=== PATIENT | female | born 1990 | race Caucasian/White ===

== ENCOUNTER 2019-11-12 15:28 | Emergency (ER) | payer OTHER, SELFPAY ==
[2019-11-12 15:31] VITALS: BP 138/83; PULSE 109; RESP 20; TEMP 36.4; O2SAT 100
--- NOTE | 2019-11-12 15:56 | ED.SKABFB ---
HPI - Skin/Abscess/Foreign Bdy General Chief complaint: Allergic Reaction <WILVER Lemus Last Filed: 11/12/19 16:16> Stated complaint: generalized rash <WILVER Lemus Last Filed: 11/12/19 16:16> Time Seen by Provider: 11/12/19 15:30 <WILVER Lemus Last Filed: 11/12/19 16:16> Source: patient and RN notes reviewed <WILVER Lemus Last Filed: 11/12/19 16:16> Mode of arrival: ambulatory <WILVER Lemus Last Filed: 11/12/19 16:16> Limitations: no limitations <WILVER Lemus Last Filed: 11/12/19 16:16> History of Present Illness HPI narrative: Pt is a 28 y/o female who presents to the ED with c/o generalized rash starting 4 days ago. She notes that she was working outside in a yard with her 6 days ago. Pt states that she first noticed a rash 2 days later. She notes that she was evaluated at an urgent care facility on 11/09/19 for her symptoms, and states that she was placed on a Medrol Dosepak, which she started today. Pt notes that her rash has spread throughout her arms, chest, lt foot, and face. She reports warmth around the rash and eye itching, but denies any fever or other symptoms. <WILVER Lemus Last Filed: 11/12/19 16:16> MD complaint: rash <WILVER Lemus Last Filed: 11/12/19 16:16> Onset (ago): day(s) (4) <WILVER Lemus Last Filed: 11/12/19 16:16> Location: generalized <WILVER Lemus Last Filed: 11/12/19 16:16> Context: other (recent yard work) <WILVER Lemus Last Filed: 11/12/19 16:16> Associated symptoms: itching (eye itching) and other (warmth around rash) <WILVER Lemus Last Filed: 11/12/19 16:16> Treatments prior to arrival: other (Medrol Dosepak) <Josh Garrett PA-C - Last Filed: 11/12/19 16:16> Related Data Home medications: Home Medications Medication Instructions Recorded Confirmed amitriptyline 08/25/19 ergocalciferol (vitamin D2) 08/25/19 [Vitamin D2] escitalopram oxalate mg 08/25/19 gabapentin 08/25/19 hydroxyzine HCl 08/25/19 loratadine mg 08/25/19 methocarbamol mg 08/25/19 mirtazapine mg 08/25/19 naproxen 08/25/19 omeprazole 08/25/19 tramadol mg 08/25/19 venlafaxine mg PO 08/25/19 <Josh Garrett PA-C - Last Filed: 11/12/19 16:16> Allergies/Adverse reactions: Allergies Allergy/AdvReac Type Severity Reaction Status Date / Time dicyclomine Allergy Mild Muscle Verified 11/12/19 15:37 Spasms metoclopramide Allergy Mild Rash Verified 11/12/19 15:37 <Josh Garrett PA-C - Last Filed: 11/12/19 16:16> Review of Systems Review of Systems: All systems reviewed & are unremarkable except as noted in HPI and below <Josh Garrett PA-C - Last Filed: 11/12/19 16:16> Constitutional: Constitutional: Denies fever(s) <Josh Garrett PA-C - Last Filed: 11/12/19 16:16> Eyes: Eyes: Reports itchy eyes <Josh Garrett PA-C - Last Filed: 11/12/19 16:16> Integumentary/Breasts: Skin/Breast: Reports rash (generalized) and Reports other (warmth around rash) <Josh Garrett PA-C - Last Filed: 11/12/19 16:16> [facility], [facility] Past Medical History Medical History: Medical History Anxiety Colitis Depression Endometriosis Fibromyalgia IBS (irritable bowel syndrome) Migraines PCOS (polycystic ovarian syndrome) PTSD (post-traumatic stress disorder) <WILVER Lemus Last Filed: 11/12/19 16:16> Surgical History Surgical History: Surgical History Hx of appendectomy Hx of cholecystectomy Hx of tonsillectomy <Josh Garrett PA-C - Last Filed: 11/12/19 16:16> Social History Social History: Social History Smoking status: Former smoker Tobacco type: ciga
== END 2019-11-12 16:42 | disposition home or self-care (01) ==
PROVIDERS: Emergency Provider General Practice
DX: L23.7 Allergic contact dermatitis due to plants, except food (principal); F41.9 Anxiety disorder, unspecified; F32.9 Major depressive disorder, single episode, unspecified; K58.9 Irritable bowel syndrome, unspecified; E28.2 Polycystic ovarian syndrome; F43.10 Post-traumatic stress disorder, unspecified; Z87.891 Personal history of nicotine dependence
CPT/HCPCS: 99283

== ENCOUNTER 2020-03-24 21:51 | Emergency (ER) | payer OTHER, SELFPAY ==
[2020-03-24 21:54] VITALS: BP 140/96; PULSE 104; RESP 18; TEMP 36.9; O2SAT 98
[2020-03-24] MEDS: methylPREDNISolone SOD SUCC 125 MG VIAL IM (23:02)
[2020-03-24] MEDS: FAMOTIDINE 20 MG TABLET PO (23:02)
--- NOTE | 2020-03-24 23:11 | ED.SKABFB ---
HPI - Skin/Abscess/Foreign Bdy General Chief complaint: Skin/Abscess/Foreign Body Stated complaint: poison leonor all over face Time Seen by Provider: 03/24/20 22:38 Source: patient Mode of arrival: ambulatory Limitations: no limitations History of Present Illness HPI narrative: This patient is a 29 year old female who presents for evaluation of poison leonor to her face. She states she was cleaning brush on Tuesday and she was exposed to poison leonor. She has a rash on her lower back from the rash. This morning she developed itching to her face, lips and left eye. She denies sob or chest pain. She took benadryl before coming to ER. complaint: rash Related Data Home Medications Medication Instructions Recorded Confirmed amitriptyline 08/25/19 ergocalciferol (vitamin D2) 08/25/19 [Vitamin D2] escitalopram oxalate mg 08/25/19 gabapentin 08/25/19 hydroxyzine HCl 08/25/19 loratadine mg 08/25/19 methocarbamol mg 08/25/19 mirtazapine mg 08/25/19 naproxen 08/25/19 omeprazole 08/25/19 tramadol mg 08/25/19 venlafaxine mg PO 08/25/19 Allergies Allergy/AdvReac Type Severity Reaction Status Date / Time dicyclomine Allergy Mild Muscle Verified 11/12/19 15:37 Spasms metoclopramide Allergy Mild Rash Verified 11/12/19 15:37 Review of Systems Review of Systems: All systems reviewed & are unremarkable except as noted in HPI and below Constitutional: Constitutional: Denies chills and Denies fever(s) [facility] Past Medical History Medical History Anxiety Colitis Depression Endometriosis Fibromyalgia IBS (irritable bowel syndrome) Migraines PCOS (polycystic ovarian syndrome) PTSD (post-traumatic stress disorder) Social History Social History Smoking status: Former smoker Tobacco type: cigarettes Alcohol intake: current Substance use: never Gender identity (if verbalized by the patient): Female Exam Const: General: no acute distress and alert Nutritional Appearance: obese Orientation/consciousness: patient oriented x3 HENMT: Head: normocephalic and atraumatic Mouth: Yes Normal oral and palatal mucosa present, Yes lip normal, Yes tongue normal, Yes oropharynx normal and Yes moist mucous membranes Throat: posterior oropharynx normal, tonsils normal and uvula midline Eyes: Conjunctivae: conjunctivae normal Pupils: Equal, round and reactive pupils present EOM: EOMs intact bilaterally Other: left periorbital edema Chest: Chest palpation & inspection: normal inspection of the chest Resp: Effort & Inspection: normal respiratory effort and no retractions Auscultation: clear to auscultation bilaterally Cardio: Rate: regular rate Rhythm: regular rhythm Heart sounds: no murmurs Skin: Other: multiple papular and pustules to back to suggest acne, there is linear macular rash to back consistent with contact dermatitis, no rash seen on face or extremities. Neuro: General: patient oriented x3 and moves all extremities Course Vital Signs Vital signs: Vital Signs Temperature 98.5 F 03/24/20 21:54 Pulse Rate 104 H 03/24/20 21:54 Respiratory Rate 18 03/24/20 21:54 Blood Pressure 140/96 H 03/24/20 21:54 Pulse Oximetry 98 03/24/20 21:54 Temperature 98.4 F 03/25/20 00:22 Pulse Rate 89 03/25/20 00:22 Respiratory Rate 18 03/25/20 00:22 Blood Pressure 136/89 03/25/20 00:22 Pulse Oximetry 98 03/25/20 00:22 Discharge Plan Discharge Clinical Impression: Contact dermatitis Patient Disposition: Home, Self-Care Condition: Stable Instructions: Antibiotic Form, Contact Dermatitis (ED), Poison Leonor (ED) Additional Instructions: Continue to use either benadryl or hydroxyzine for your itching. Take steroid pack and use steroid cream on your rash. Follow up with your primary care physician if no improvement. REturn to ER if you devel
[2020-03-25 00:22] VITALS: BP 136/89; PULSE 89; RESP 18; TEMP 36.9; O2SAT 98
== END 2020-03-25 00:23 | disposition home or self-care (01) ==
PROVIDERS: Emergency Provider General Practice
DX: L25.9 Unspecified contact dermatitis, unspecified cause (principal); F41.9 Anxiety disorder, unspecified; F32.9 Major depressive disorder, single episode, unspecified; M79.7 Fibromyalgia; K58.9 Irritable bowel syndrome, unspecified
CPT/HCPCS: 96372; 99283; A9270; J2930

== ENCOUNTER 2020-07-09 00:35 | Emergency (ER) | payer OTHER, SELFPAY ==
--- NOTE | ~2020-07-09 | XR_ITS ---
EXAMINATION: XR chest 1V portable EXAM DATE: 07/09/2020 01:11 INDICATION: Cough and shortness of breath. TECHNIQUE: Portable AP frontal chest x-ray was obtained. There is no prior study for comparison. FINDINGS: The lungs are clear. There are no pleural effusions. The cardiomediastinal silhouette is within normal limits. There is no pneumothorax suspected. The bones and soft tissues are unremarkab le. IMPRESSION: No acute cardiopulmonary findings. Reviewed, dictated and finalized at location A. K INSPECTOR
[2020-07-09 00:44] VITALS: BP 141/87; PULSE 118; RESP 30; TEMP 36.7; O2SAT 97
--- NOTE | 2020-07-09 00:51 | ED.SOB ---
HPI - SOB/Dyspnea General Chief Complaint: Shortness of Breath/Dyspnea Stated Complaint: sob Time Seen by Provider: 07/09/20 00:36 Source: patient Mode of arrival: ambulatory Limitations: no limitations History of Present Illness HPI Narrative: Patient a 29-year-old female who presents with 1 day duration of shortness of breath with cough that is nonproductive congestion rhinorrhea denies sick contacts saw primary care was given inhaler had negative influenza and Covid notes he continues to have harsh coarse cough with chest tightness and aching pain in the ribs on the left side. Patient has not taken anything else for her symptoms denies tobacco abuse Related Data Home Medications Medication Instructions Recorded Confirmed amitriptyline 08/25/19 ergocalciferol (vitamin D2) 08/25/19 [Vitamin D2] escitalopram oxalate mg 08/25/19 gabapentin 08/25/19 hydroxyzine HCl 08/25/19 loratadine mg 08/25/19 methocarbamol mg 08/25/19 mirtazapine mg 08/25/19 naproxen 08/25/19 omeprazole 08/25/19 tramadol mg 08/25/19 venlafaxine mg PO 08/25/19 fexofenadine 180 mg PO DAILY 07/09/20 pregabalin [Lyrica] 150 mg PO BID 07/09/20 Allergies Allergy/AdvReac Type Severity Reaction Status Date / Time dicyclomine Allergy Mild Muscle Verified 07/09/20 00:50 Spasms metoclopramide Allergy Mild Rash Verified 07/09/20 00:50 Review of Systems Review of Systems: All systems reviewed & are unremarkable except as noted in HPI and below PMFSH Past Medical History Medical History (Updated 07/09/20 @ 01:16 by Josh Garrett PA-C) Anxiety Colitis Depression Endometriosis Fibromyalgia IBS (irritable bowel syndrome) Migraines PCOS (polycystic ovarian syndrome) PTSD (post-traumatic stress disorder) Surgical History Surgical History Hx of appendectomy Hx of cholecystectomy Hx of tonsillectomy Social History Social History Smoking status: Former smoker Tobacco type: cigarettes Alcohol intake: current Substance use: never Gender identity (if verbalized by the patient): Female Sexual Orientation (if Verbalized by the Patient): Straight or Heterosexual Exam Narrative: Exam Narrative: GENERAL: Well-appearing, well-nourished, and in no acute distress. HEAD: Normocephalic, atraumatic. EYES: PERRLA and EOMI. ENT: Nares clear, no rhinorrhea or epistaxis. Mucous membranes moist. Oropharynx without tonsillar hypertrophy exudate or other lesions. Bilateral TMs pearly marcelo nonbulging CHEST: Clear to auscultation. No respiratory distress. Coarse breath sounds throughout with fine expiratory wheezes HEART: Regular rate and rhythm. No murmur heard. EXTREMITIES: Normal range of motion. No edema. SKIN: Warm, dry, no rash. NEURO: No focal deficits. Alert and oriented x3. PSYCH: Normal mood and affect. Course Course Emergency Course: Patient in the room at this time will be discharged home will be treated for bronchitis will be reswabbed for Covid no pneumonia seen on exam afebrile nontoxic-appearing. Patient will be placed on steroids was given steroids in the emergency department as well as an MDI instruct Vital Signs Vital signs: Vital Signs Temperature 98.1 F 07/09/20 00:44 Pulse Rate 118 H 07/09/20 00:44 Respiratory Rate 30 H 07/09/20 00:44 Blood Pressure 141/87 H 07/09/20 00:44 Pulse Oximetry 97 07/09/20 00:44 Temperature 98.1 F 07/09/20 00:52 Pulse Rate 115 H 07/09/20 00:53 Respiratory Rate 19 07/09/20 00:52 Blood Pressure 141/87 H 07/09/20 00:52 Pulse Oximetry 97 07/09/20 00:52 MDM - SOB/Dyspnea MDM Narrative Medical decision making narrative: Patient in the room aware of case findings treatment plan diagnosis will follow with primary care for further evaluation will be started on steroids and other supportive medications pending COVID-19 results D
[2020-07-09 00:52] VITALS: BP 141/87; PULSE 117; RESP 19; TEMP 36.7; O2SAT 97
[2020-07-09 00:53] VITALS: PULSE 115
[2020-07-09 01:31] VITALS: PULSE 111; RESP 23
[2020-07-09] MEDS: IPRATROPIUM BR 0.02% INH SOLN 0.5 MG/2.5 ML VIAL INHALATION (01:32)
[2020-07-09] MEDS: ALBUTEROL SULFATE NEB 2.5 MG/0.5 ML INH 5 MG INHALATION (01:32)
[2020-07-09 01:33] VITALS: PULSE 111; RESP 20
[2020-07-09] MEDS: BENZONATATE 100 MG CAPSULE 200 MG PO (01:53)
[2020-07-09] MEDS: predniSONE 20 MG TABLET 60 MG PO (01:56)
[2020-07-09 02:00] VITALS: BP 132/82; PULSE 113; RESP 19; O2SAT 98
== END 2020-07-09 02:00 | disposition home or self-care (01) ==
PROVIDERS: Emergency Provider Emergency Medicine; PCP Nurse Practitioner
DX: J06.9 Acute upper respiratory infection, unspecified (principal); F41.9 Anxiety disorder, unspecified; F32.9 Major depressive disorder, single episode, unspecified; M79.7 Fibromyalgia
CPT/HCPCS: 71045; 94640; 99283; A9270; J7512

== ENCOUNTER 2020-09-13 13:39 | Emergency (ER) | payer OTHER, SELFPAY ==
--- NOTE | ~2020-09-13 | US_ITS ---
EXAMINATION: US pelvic complete w TV DATE: 09/13/2020 15:07 INDICATION: Left pelvic pain. Uterine bleeding. Comparison:No prior studies for comparison. TECHNIQUE: Multiple transabdominal and endovaginal sonographic images of the pelvis performed. FINDINGS: The uterus measures 8.3 x 4 x 3.6 cm. The endometrial complex measures 2.5 mm. The right ovary measures 2.8 x 2.3 x 2.7 cm and the left ovary measures 3 x 2.6 x 1.8 cm. There is a 2.5 cm right ovarian cyst. There is no free fluid in the pelvis. There are no abnormal masses seen on either side. IMPRESSION: 1. Right ovarian cyst measuring 2.5 cm. Reviewed, dictated and finalized at location A. STUDIO TEACHER
[2020-09-13 13:42] VITALS: BP 143/89; PULSE 95; RESP 18; TEMP 36; O2SAT 98
--- NOTE | 2020-09-13 14:22 | ED.FEMALEGU ---
HPI - Female Genitourinary General Chief complaint: RECRUITING SCHEDULER Stated complaint: abdominal pain/vaginal bleeding Time Seen by Provider: 09/13/20 13:52 Source: patient Mode of arrival: ambulatory Limitations: no limitations History of Present Illness HPI Narrative: This is a 29 year old female that presents to the ER for pelvic pain. Reports she has not had a menstrual cycle in years. Reports she started her cycle 2 days ago. Reports heavy vaginal bleeding. Reports she also noted left sided pelvic pain today which is sharp in nature. Reports some dysuria. Reports no concern for STDs. Denies fever, nausea, vomiting, or hematuria. Related Data Home Medications Medication Instructions Recorded Confirmed amitriptyline 08/25/19 ergocalciferol (vitamin D2) 08/25/19 [Vitamin D2] escitalopram oxalate mg 08/25/19 gabapentin 08/25/19 hydroxyzine HCl 08/25/19 loratadine mg 08/25/19 methocarbamol mg 08/25/19 mirtazapine mg 08/25/19 naproxen 08/25/19 omeprazole 08/25/19 tramadol mg 08/25/19 venlafaxine mg PO 08/25/19 fexofenadine 180 mg PO DAILY 07/09/20 pregabalin [Lyrica] 150 mg PO BID 07/09/20 Allergies Allergy/AdvReac Type Severity Reaction Status Date / Time dicyclomine Allergy Mild Muscle Verified 09/13/20 13:44 Spasms metoclopramide Allergy Mild Rash Verified 09/13/20 13:44 Review of Systems Review of Systems: Narrative: CONSTITUTIONAL: Denies fever GASTROINTESTINAL: Reports abdominal/pelvic pain. Denies nausea, vomiting, or diarrhea. GENITOURINARY: Reports dysuria. Denies hematuria. All systems reviewed & are unremarkable except as noted in HPI and below PMFSH Past Medical History Medical History (Updated 09/13/20 @ 16:45 by Sarah June PA-C) Anxiety Colitis Depression Endometriosis Fibromyalgia IBS (irritable bowel syndrome) Migraines PCOS (polycystic ovarian syndrome) PTSD (post-traumatic stress disorder) Surgical History Surgical History Hx of appendectomy Hx of cholecystectomy Hx of tonsillectomy Social History Social History Smoking status: Former smoker Tobacco type: cigarettes Alcohol intake: current Substance use: never Gender identity (if verbalized by the patient): Female Exam Narrative: Exam Narrative: GENERAL: Well-appearing, obese, and in no acute distress. HEAD: Normocephalic, atraumatic. EYES: EOMI. CHEST: Clear to auscultation. No respiratory distress. No wheezes rales or rhonchi HEART: Regular rate and rhythm. No murmur heard. Normal peripheral pulses. ABDOMEN: Soft, nondistended, normal active bowel sounds. Tender to palpation in the LLQ, without guarding. Left sided CVA tenderness EXTREMITIES: Normal range of motion. No edema. SKIN: Warm, dry, no rash. NEURO: No focal deficits. Alert and oriented x3. PSYCH: Normal mood and affect PELVIC: Normal external genitals. Normal appearing cervix. Small amount of blood in the vaginal vault. No CMT Course Vital Signs Vital signs: Vital Signs Temperature 96.8 F L 09/13/20 13:42 Pulse Rate 95 09/13/20 13:42 Respiratory Rate 18 09/13/20 13:42 Blood Pressure 143/89 H 09/13/20 13:42 Pulse Oximetry 98 09/13/20 13:42 Temperature 96.8 F L 09/13/20 13:42 Pulse Rate 92 09/13/20 14:33 Respiratory Rate 18 09/13/20 13:42 Blood Pressure 151/111 H 09/13/20 14:33 Pulse Oximetry 98 09/13/20 13:42 MDM - Female Genitourinary MDM Narrative Medical decision making narrative: Patient presents to the emergency department for abnormal uterine bleeding. Also reporting dysuria. She is afebrile and nontoxic-appearing. CBC with mild leukocytosis to 12.4. UA with evidence of possible infection. Bedside test is negative. Pelvic ultrasound shows a right ovarian cyst measuring 2.5 cm. Normal vascular flow to the ovaries. Evidence of possible infection on UA and left
[2020-09-13 14:29] LABS: Basophils Absolute Auto 0.1 K/mm3 (0.0-0.1); Basophils Percent Auto 0.7 % (0.2-1.2); Eosinophils Absolute Auto 0.9 K/mm3 (0-0.3); Hematocrit 40.8 % (37.0-47.0); Hemoglobin 12.9 g/dL (12.0-15.0); Immature Granulocyte Absolute 0.12 K/mm3 (0.00-0.031); Lymphocytes Absolute Auto 3.65 K/mm3 (0.9-3.2); Lymphocytes Percent Auto 29.4 % (18.3-44.2); Mean Corpuscular HGB Conc 31.6 g/dl (32-36); Mean Corpuscular Hemoglobin 27.1 pg (26-34); Mean Corpuscular Volume 85.7 fl (80-100); Mean Platelet Volume 9.9 fl (7.4-10.4); Monocytes Absolute Auto 0.9 K/mm3 (0.1-0.6); Monocytes Percent Auto 7.4 % (2.6-8.5); Neutrophils Absolute Auto 6.8 K/mm3 (1.3-6.7); Neutrophils Percent Auto 54.5 % (45.5-73.1); Platelet Count Result 330 k/mm3 (150-375); Red Blood Count 4.76 M/mm3 (4.2-5.4); Red Cell Distribution Width 15.7 % (11.5-14.5); White Blood Count 12.4 K/mm3 (4.5-10.0)
[2020-09-13 14:32] VITALS: BP 139/98; PULSE 81
[2020-09-13 14:33] VITALS: BP 139/104; BP 151/111; PULSE 80; PULSE 92
[2020-09-13 14:35] LABS: Add Urine Microscopic? YES; Appearance Urine Cloudy (Clear); Bacteria Urine Trace /hpf; Bilirubin Urine Negative (Negative); Blood Urine 2+ (Negative); Color Urine Yellow (Yellow); Glucose Urine UA Negative (Negative); Ketones Urine Negative (Negative); Leukocyte Esterase Ur 2+ LEU/UL (Negative); Mucus Urine Heavy /lpf; Nitrate Urine Negative (Negative); Protein Urine 1+ mg/dL (Negative); Squamous Epithelial Cell Urine Many /hpf (Few); Urobilinogen Urine Negative mg/dL (<2.0); WBC Urine 21-30 /hpf
[2020-09-13 14:38] LABS: INR 0.9; Prothrombin Time 12.9 Seconds (11.1-14.7)
[2020-09-13 14:39] LABS: Partial Thromboplastin Time 32.2 SECONDS (22.3-36.8)
[2020-09-13 15:32] LABS: Beta HCG Quantitative < 2.39 mIU/ML
[2020-09-13 16:40] VITALS: BP 132/93; PULSE 88; RESP 20; TEMP 36.4; O2SAT 100
[2020-09-13 17:16] VITALS: BP 132/92; PULSE 80; RESP 20; O2SAT 100
== END 2020-09-13 17:18 | disposition home or self-care (01) ==
PROVIDERS: Physician Assistant; Emergency Provider Emergency Medicine
DX: N12 Tubulo-interstitial nephritis, not specified as acute or chronic (principal); N93.9 Abnormal uterine and vaginal bleeding, unspecified; N80.9 Endometriosis, unspecified; M79.7 Fibromyalgia; K58.9 Irritable bowel syndrome, unspecified; E28.2 Polycystic ovarian syndrome; F43.10 Post-traumatic stress disorder, unspecified; F41.9 Anxiety disorder, unspecified; F32.9 Major depressive disorder, single episode, unspecified; Z87.891 Personal history of nicotine dependence
CPT/HCPCS: 36415; 76830; 76856; 81001; 81025; 84702; 85025; 85610; 85730; 86850; 86900; 86901; 87070; 87086; 87088; 87491; 87591; 87808; 96365; 96375; 99284; J0131; J0696

== ENCOUNTER 2020-10-12 12:42 | Emergency (ER) | payer OTHER, SELFPAY ==
--- NOTE | ~2020-10-12 | CT_ITS ---
EXAMINATION: CT abdomen pelvis wo con DATE: 10/12/2020 14:04 INDICATION: Left lower quadrant pain TECHNIQUE: Computed tomography (CT) of the abdomen and pelvis was performed without intravenous contr ast. The dose-length product (DLP) was 1567.07 mGy-cm. Automated exposure control and iterative recon struction technique were employed. COMPARISON: None FINDINGS: The lung bases are clear. The heart size is normal. The gallbladder is surgically absent. T he liver, spleen, pancreas, and adrenal glands are normal. The kidneys are unremarkable. No stones ar e identified in the kidneys, ureters, or bladder. There is no hydronephrosis or hydroureter. The appe ndix is absent. No pathologically enlarged abdominal or pelvic lymph nodes are identified. There is n o free intraperitoneal gas or evidence of bowel obstruction. IMPRESSION: 1. No CT correlate for the patient's symptoms. Reviewed, dictated and finalized at location A. EF MAP MODELER
[2020-10-12 12:49] VITALS: BP 156/101; PULSE 107; RESP 21; TEMP 36.5; O2SAT 98
--- NOTE | 2020-10-12 13:17 | ED.FEMALEGU ---
HPI - Female Genitourinary General Chief complaint: BANKING SPECIALIST Stated complaint: severe pelvic pain Time Seen by Provider: 10/12/20 12:56 Source: patient Mode of arrival: ambulatory Limitations: no limitations History of Present Illness HPI Narrative: Patient is a 29-year-old female complaining of left pelvic pain radiating to her left flank, 10 out of 10, sharp, started 20 minutes prior to arrival. Patient also complained of nausea, denies any vomiting diarrhea, urinary symptoms, fever or chills. Patient states that she has history of PCOS and endometriosis. Last menstrual period was September 09. Related Data Home Medications Medication Instructions Recorded Confirmed amitriptyline 08/25/19 ergocalciferol (vitamin D2) 08/25/19 [Vitamin D2] escitalopram oxalate mg 08/25/19 gabapentin 08/25/19 hydroxyzine HCl 08/25/19 loratadine mg 08/25/19 methocarbamol mg 08/25/19 mirtazapine mg 08/25/19 naproxen 08/25/19 omeprazole 08/25/19 tramadol mg 08/25/19 venlafaxine mg PO 08/25/19 fexofenadine 180 mg PO DAILY 07/09/20 pregabalin [Lyrica] 150 mg PO BID 07/09/20 Allergies Allergy/AdvReac Type Severity Reaction Status Date / Time dicyclomine Allergy Mild Muscle Verified 10/12/20 13:06 Spasms metoclopramide Allergy Mild Rash Verified 10/12/20 13:06 Review of Systems Review of Systems: All systems reviewed & are unremarkable except as noted in HPI and below Constitutional: Constitutional: Denies body ache(s), Denies chills, Denies excessive sweating, Denies fatigue, Denies fever(s), Denies headache(s), Denies lethargy, Denies malaise, Denies weakness and Denies weight loss Eyes: Eyes: Denies blurry vision, Denies change in vision and Denies loss of vision ENT: Denies dizziness, Denies ear discharge, Denies headache(s), Denies lip swelling, Denies epistaxis, Denies nasal congestion, Denies neck pain, Denies throat swelling and Denies tongue swelling Cardiovascular: Cardiovascular: Denies chest pain, Denies chest pain at rest, Denies chest pain with activity, Denies diaphoresis, Denies rapid heart rate, Denies edema, Denies irregular heart rhythm, Denies lightheadedness, Denies palpitations, Denies dyspnea and Denies dyspnea on exertion Respiratory: Respiratory: Denies chest congestion, Denies cough, Denies hemoptysis, Denies dyspnea and Denies dyspnea on exertion Gastrointestinal: Gastrointestinal: Denies melena, Denies hematochezia, Denies diarrhea, Denies nausea, Denies vomiting and Denies hematemesis Musculoskeletal: Musculoskeletal: Denies abnormal gait, Denies deformity, Denies joint swelling, Denies limited range of motion, Denies neck pain and Denies numbness Neurologic: Denies Abnormal speech present, Denies abnormal gait, Denies confusion, Denies dizziness, Denies headache(s), Denies focal weakness, Denies loss of vision, Denies numbness, Denies Other visual disturbances, Denies Sensory deficit (Neuro) and Denies weakness Psychiatric: Psychiatric: Denies confusion, Denies depression, Denies auditory hallucinations, Denies homicidal ideation and Denies suicidal ideation Endocrine: Endocrine: Denies cold intolerance, Denies excessive sweating, Denies fatigue, Denies heat intolerance and Denies palpitations Hematologic/Lymphatic: Hematologic/Lymphatic: Denies easy bleeding and Denies easy bruising Allergic/Immunologic: Allergic/Immunologic: Denies lip swelling, Denies throat swelling and Denies tongue swelling PMFSH Past Medical History Medical History (Updated 10/12/20 @ 16:22 by Dallin Fay MD) Anxiety Colitis Depression Endometriosis Fibromyalgia IBS (irritable bowel syndrome) Migraines PCOS (polycystic ovarian syndrome) PTSD (post-traumatic stress disorder) Surgical History Surgical History Hx of appendectomy Hx of cholecystectomy Hx of tonsillectomy Social History Social History (Reviewed 10/12/20 @ 13:19 by Dallin Moralez
[2020-10-12] MEDS: KETOROLAC 30 MG/ML VIAL (*BKC) IV PUSH (13:24)
[2020-10-12] MEDS: PROMETHAZINE HCL 25 MG/ML AMPUL 12.5 MG IV PUSH (13:24)
[2020-10-12 13:47] LABS: Basophils Absolute Auto 0.1 K/mm3 (0.0-0.1); Basophils Percent Auto 0.7 % (0.2-1.2); Eosinophils Absolute Auto 0.8 K/mm3 (0-0.3); Eosinophils Percent Auto 7.7 % (0-4.4); Hematocrit 41.6 % (37.0-47.0); Hemoglobin 13.1 g/dL (12.0-15.0); Immature Granulocyte Percent A 0.9 % (0-0.5); Lymphocytes Absolute Auto 3.46 K/mm3 (0.9-3.2); Lymphocytes Percent Auto 32.3 % (18.3-44.2); Mean Corpuscular HGB Conc 31.5 g/dl (32-36); Mean Corpuscular Hemoglobin 26.7 pg (26-34); Mean Corpuscular Volume 84.9 fl (80-100); Mean Platelet Volume 10.1 fl (7.4-10.4); Monocytes Percent Auto 8.9 % (2.6-8.5); Neutrophils Absolute Auto 5.3 K/mm3 (1.3-6.7); Neutrophils Percent Auto 49.5 % (45.5-73.1); Platelet Count Result 307 k/mm3 (150-375); Red Cell Distribution Width 14.9 % (11.5-14.5); White Blood Count 10.7 K/mm3 (4.5-10.0)
[2020-10-12 14:09] LABS: Add Urine Microscopic? YES; Appearance Urine Cloudy (Clear); Bilirubin Urine Negative (Negative); Blood Urine Negative (Negative); Color Urine Yellow (Yellow); Glucose Urine UA Negative (Negative); Ketones Urine Negative (Negative); Leukocyte Esterase Ur Negative LEU/UL (Negative); Mucus Urine Rare /lpf; Nitrate Urine Negative (Negative); Protein Urine Negative (Negative); RBC Urine 0-2 /hpf (0-2); Specific Grav Ur 1.015 (1.001-1.035); Squamous Epithelial Cell Urine Many /hpf (Few); Urobilinogen Urine Negative mg/dL (<2.0)
[2020-10-12 14:48] LABS: Alanine Aminotransferase 28 U/L (4-35); Albumin Level 4.2 g/dL (3.5-5.1); Alkaline Phosphatase 68 U/L (38-126); Anion Gap 6 mmol/L (8-16); Aspartate Amino Transferase 28 U/L (14-36); Bilirubin,Total < 0.1 mg/dL (0.2-1.3); Blood Urea Nitrogen 6 mg/dL (7-17); Calcium 9.4 mg/dL (8.4-10.2); Carbon Dioxide 27 mmol/L (22-30); Chloride 106 mmol/L (98-107); Estimated CRCL calculation 146 ml/min; Estimated Glomerular Filt Rate > 60; Glucose 96 mg/dL (65-105); Lipase 55 U/L (23-300); Sodium 139 mmol/L (137-145)
[2020-10-12 15:31] VITALS: BP 132/108; PULSE 94; RESP 18; O2SAT 99
== END 2020-10-12 16:42 | disposition home or self-care (01) ==
PROVIDERS: Emergency Provider Emergency Medicine
DX: R10.2 Pelvic and perineal pain (principal); M79.7 Fibromyalgia; N80.9 Endometriosis, unspecified; K58.9 Irritable bowel syndrome, unspecified; E28.2 Polycystic ovarian syndrome; F43.10 Post-traumatic stress disorder, unspecified; F32.9 Major depressive disorder, single episode, unspecified; F41.9 Anxiety disorder, unspecified; Z87.891 Personal history of nicotine dependence
CPT/HCPCS: 36415; 74176; 80053; 81001; 81025; 83690; 85025; 96374; 96375; 99284; J1885; J2550

== ENCOUNTER 2022-10-03 16:05 | Emergency (ER) | payer OTHER, MEDICAID, SELFPAY ==
--- NOTE | ~2022-10-03 | CT_ITS ---
EXAMINATION: CT abdomen pelvis w con DATE: 10/03/2022 20:14 INDICATION: llq abd pain, l flank pain, uti sx TECHNIQUE: Computed tomography (CT) of the abdomen and pelvis was performed with 100 mL Omnipaque-350 intravenous contrast. Automated exposure control and iterative reconstruction technique were employe d. The dose-length product was 1120.90 mGy-cm. COMPARISON: 10/12/2020. FINDINGS: Lower thorax: Mild dependent atelectasis, greater in the right lung. Liver: Normal. Biliary/Gallbladder: Gallbladder is absent. Mild common bile duct dilation likely secondary to cholec ystectomy. Pancreas: No mass or duct dilation. Spleen: Normal. Adrenals:No mass. Kidneys: No mass, stone, or hydronephrosis. GI tract: Mild antral wall edema. No small or large bowel dilation. Surgically absent appendix Mesentery/Peritoneum: No ascites, mass, or free air. Retroperitoneum: No mass. Pelvis: Simple left ovarian cysts/dominant follicles. Normal uterus. Mild bladder wall thickening. Soft Tissues: Soft tissues and body wall unremarkable. Bones: No acute osseous finding. IMPRESSION: Mild antral gastritis. Bladder wall thickening which may be secondary to incomplete distention or cys titis. Reviewed, dictated and finalized at [facility] IMPRESSION: Mild antral gastritis. Bladder wall thickening which may be secondary to incomp lete distention or cystitis.
[2022-10-03 16:09] VITALS: BP 135/98; PULSE 85; RESP 16; TEMP 36.2; O2SAT 100
[2022-10-03 16:26] LABS: Appearance Urine Cloudy (Clear); Bilirubin Urine Negative (Negative); Blood Urine 1+ (Negative); Color Urine Yellow (Yellow); Glucose Urine UA Negative (Negative); Ketones Urine Negative (Negative); Leukocyte Esterase Ur Trace LEU/UL (Negative); Nitrate Urine Positive (Negative); Protein Urine 1+ mg/dL (Negative); Specific Grav Ur >= 1.030 (1.001-1.035); Urobilinogen Urine 0.2 mg/dL (<2.0); pH Urine 5.5 (5.0-9.0)
[2022-10-03 16:37] LABS: Bacteria Urine 4+ /hpf; Mucus Urine Heavy /lpf; Squamous Epithelial Cell Urine Many /hpf (Few); WBC Urine 31-50 /hpf
[2022-10-03 16:39] LABS: Add Urine Microscopic? YES
[2022-10-03 16:41] LABS: Basophils Absolute Auto 0.1 K/mm3 (0.0-0.1); Basophils Percent Auto 0.5 % (0.2-1.2); Eosinophils Absolute Auto 0.6 K/mm3 (0-0.3); Eosinophils Percent Auto 4.3 % (0-4.4); Hemoglobin 13.8 g/dL (12.0-15.0); Immature Granulocyte Absolute 0.07 K/mm3 (0.00-0.031); Immature Granulocyte Percent A 0.5 % (0-0.5); Lymphocytes Absolute Auto 3.93 K/mm3 (0.9-3.2); Lymphocytes Percent Auto 30.8 % (18.3-44.2); Mean Corpuscular HGB Conc 32.1 g/dl (32-36); Mean Corpuscular Hemoglobin 28.2 pg (26-34); Mean Corpuscular Volume 87.9 fl (80-100); Mean Platelet Volume 10.3 fl (7.4-10.4); Neutrophils Absolute Auto 7.1 K/mm3 (1.3-6.7); Neutrophils Percent Auto 55.9 % (45.5-73.1); Platelet Count Result 272 k/mm3 (150-375); Red Blood Count 4.89 M/mm3 (4.2-5.4); Red Cell Distribution Width 13.9 % (11.5-14.5); White Blood Count 12.7 K/mm3 (4.5-10.0)
[2022-10-03 16:53] LABS: Alanine Aminotransferase 15 U/L (6-35); Albumin Level 4.7 g/dL (3.5-5.1); Alkaline Phosphatase 65 U/L (38-126); Anion Gap 5 mmol/L (8-16); Aspartate Amino Transferase 18 U/L (14-36); Bilirubin,Total 0.5 mg/dL (0.2-1.3); Blood Urea Nitrogen 8 mg/dL (7-17); Calcium 9.3 mg/dL (8.4-10.2); Carbon Dioxide 28 mmol/L (22-30); Chloride 101 mmol/L (98-107); Estimated CRCL calculation 133 ml/min; Estimated Glomerular Filt Rate > 60; Glucose 90 mg/dL (65-110); Lipase 37 U/L (23-300); Potassium 4.3 mmol/L (3.4-5.0); Sodium 134 mmol/L (137-145)
[2022-10-03 18:15] VITALS: BP 141/95; PULSE 79; RESP 16; TEMP 36.3; O2SAT 100
--- NOTE | 2022-10-03 19:22 | ED.ABDPAIN ---
HPI - Abdominal Pain General Chief Complaint: Abdominal Pain Stated Complaint: abd pain/blood in urine Time Seen by Provider: 10/03/22 19:17 History of Present Illness HPI narrative: Patient is a 31-year-old female here for evaluation of left lower quadrant abdominal pain over the past 2 days. Patient states the pain is sharp and stabbing in nature, coming in waves. She reports associated nausea, dysuria, and blood-tinged to her urine. While she was sitting in the waiting room she states that her pain moved into her left flank. She attempted the milligrams of Zofran for her nausea with good relief and has not had any relief of her pain after to 500 mg of Tylenol. No fevers, chills, vomiting, diarrhea or constipation. She has a history of endometriosis and is status post numerous ablation procedures. Related Data Home Medications Medication Instructions Recorded Confirmed amitriptyline 150 mg tablet 08/25/19 ergocalciferol (vitamin D2) 1,250 08/25/19 mcg (50,000 unit) capsule (Vitamin D2) escitalopram oxalate 20 mg tablet mg 08/25/19 gabapentin 800 mg tablet 08/25/19 hydroxyzine HCl 25 mg tablet 08/25/19 loratadine 10 mg tablet mg 08/25/19 methocarbamol 750 mg tablet mg 08/25/19 mirtazapine 30 mg tablet mg 08/25/19 naproxen 500 mg tablet 08/25/19 omeprazole 40 mg capsule,delayed 08/25/19 release tramadol 50 mg tablet mg 08/25/19 venlafaxine 75 mg capsule,extended mg PO 08/25/19 release 24 hr fexofenadine 180 mg tablet 180 mg PO DAILY 07/09/20 pregabalin 150 mg capsule (Lyrica) 150 mg PO BID 07/09/20 Allergies Allergy/AdvReac Type Severity Reaction Status Date / Time dicyclomine Allergy Mild Muscle Verified 10/12/20 13:06 Spasms metoclopramide Allergy Mild Rash Verified 10/12/20 13:06 Review of Systems Review of Systems: Gen.: Denies fevers or chills Eyes: Denies eye pain or visual change ENT: Denies congestion Respiratory: Denies shortness of breath or cough CV: Denies chest pain or palpitations GI: Reports abdominal pain, nausea reports dysuria, urgency and frequency. Musculoskeletal: Denies back pain or muscle pain Neuro: Denies numbness, tingling, weakness or focal weakness Skin: Denies rash Except as documented, all other systems reviewed and negative PMFSH Past Medical History Medical History (Updated 10/04/22 @ 00:00 by Background Daemon) Anxiety Colitis Depression Endometriosis Fibromyalgia IBS (irritable bowel syndrome) Migraines PCOS (polycystic ovarian syndrome) PTSD (post-traumatic stress disorder) Surgical History Surgical History Hx of appendectomy Hx of cholecystectomy Hx of tonsillectomy Social History Social History Smoking status: Former smoker Tobacco type: cigarettes Alcohol intake: current Alcohol use details: socially Substance use: never Living arrangements: with family Gender identity (if verbalized by the patient): Female Sexual Orientation (if Verbalized by the Patient): Straight or Heterosexual Exam Narrative: APPEARANCE: Well appearing, no pain in distress, well-nourished. Head: Normocephalic and atraumatic. EYES: PERRLA/EOMI, conjunctivae clear NOSE: No nasal drainage EARS: External ear normal in appearance THROAT: Oropharynx is clear. Mucous membranes are moist. NECK: Supple. No adenopathy, no masses. RESPIRATORY: Airway patent, respirations nonlabored. Clear to auscultation bilaterally, no rales, rhonchi, wheezing. CARDIOVASCULAR: Regular rate and rhythm without murmurs, rubs, or gallops. ABDOMINAL: Tenderness to palpation in the left lower quadrant with guarding. MUSCULOSKELETAL: CVA tenderness bilaterally. NEURO: Normal speech. No focal neurologic deficits. SKIN: Skin is warm and dry. No rashes. PSYCHIATRIC: Normal affect/mood. Course Vital Signs Vital signs: Vital Signs
[2022-10-03 19:32] VITALS: BP 132/93; PULSE 67; RESP 18; O2SAT 99
[2022-10-03] MEDS: diphenhydrAMINE HCl INJ 50 MG/ML VIAL 12.5 MG IV PUSH (19:46)
[2022-10-03] MEDS: PROCHLORPERAZINE EDISYLATE 10 MG/2 ML VIAL IV PUSH (19:47)
[2022-10-03] MEDS: LACTATED RINGERS 1,000 ML 999 ML IV CONT (19:47)
--- NOTE | 2022-10-03 20:20 | PC.NURSE ---
Pt c/o feeling restless. PA notified.
[2022-10-03] MEDS: diphenhydrAMINE HCl INJ 50 MG/ML VIAL 25 MG IV PUSH (20:22)
[2022-10-03 20:29] VITALS: BP 139/79; PULSE 77; RESP 16; O2SAT 99
[2022-10-03] MEDS: FAMOTIDINE 20 MG/2 ML VIAL IV PUSH (20:54)
== END 2022-10-03 21:05 | disposition home or self-care (01) ==
PROVIDERS: Emergency Medicine; Emergency Provider Physician Assistant; PCP Family Medicine
DX: N39.0 Urinary tract infection, site not specified (principal); N80.9 Endometriosis, unspecified; M79.7 Fibromyalgia; K58.9 Irritable bowel syndrome, unspecified; E28.2 Polycystic ovarian syndrome; F41.9 Anxiety disorder, unspecified; F32.A Depression, unspecified; F43.10 Post-traumatic stress disorder, unspecified; Z87.891 Personal history of nicotine dependence; K29.70 Gastritis, unspecified, without bleeding
CPT/HCPCS: 36415; 74177; 80053; 81001; 81025; 83690; 85025; 87077; 87086; 87186; 96361; 96374; 96375; 96376; 99284; J0780; J1200; J7120; Q9967